=== PATIENT | male | born 1985 | race Caucasian/White ===

== ENCOUNTER 2018-03-23 10:16 | Emergency (ER) | payer BC ==
[~2018-03-23] VITALS: Ht 182.9 cm; Wt 82.6 kg
[2018-03-23] MEDS ORDERED: CENTRUM SILVER1 EAC2 PO (10:25)
[2018-03-23] MEDS ORDERED: ADDERALL 20 MG20 MG PO (10:25)
[2018-03-23 10:37] LABS: ABSOLUTE BASOPHILS 0.1 thou/uL (0.0-0.2); ABSOLUTE EOSINOPHILS 0.2 thou/uL (0.0-0.7); ABSOLUTE LYMPHOCYTES 1.8 thou/uL (0.8-5.3); ABSOLUTE MONOCYTES 0.8 thou/uL (0.0-1.2); ABSOLUTE NEUTROPHILS 4.5 thou/uL (1.6-8.1); BASOPHILS 0.8 %; EOSINOPHILS 2.1 %; HEMATOCRIT 44.8 % (42.0-52.0); HEMOGLOBIN 15.1 gm/dL (14.0-18.0); MCH 29.3 pg (26.0-34.0); MCHC 33.7 g/dL (28.0-37.0); MCV 86.9 fL (80.0-100.0); MONOCYTES 11.5 %; MPV 9.4 fl. (7.2-11.1); NUCLEATED RBCS 0 /100WBC; PLATELET COUNT* 224 thou/uL (150-400); POLYS 61.6 %; RBC 5.16 mil/uL (4.50-6.00); RDW-CV 12.5 % (10.5-14.5); WBC 7.3 thou/uL (4.0-11.0)
[2018-03-23 10:58] LABS: CALCIUM 9.6 mg/dL (8.5-10.1); CREATININE 1.2 mg/dL (0.6-1.3); POTASSIUM 4.5 mmol/L (3.5-5.1)
[2018-03-23 11:03] LABS: TOTAL BILIRUBIN 1.1 mg/dL (<0.1-1.0); TOTAL PROTEIN 7.2 g/dL (6.4-8.2)
[2018-03-23 11:26] LABS: URINE BILIRUBIN NEGATIVE (Negative); URINE BLOOD NEGATIVE (Negative); URINE CLARITY CLEAR; URINE COLOR YELLOW; URINE GLUCOSE-RANDOM NEGATIVE (Negative); URINE KETONES NEGATIVE (Negative); URINE LEUKOCYTES-REFLEX NEGATIVE (Negative); URINE NITRITE-REFLEX NEGATIVE (Negative); URINE PROTEIN NEGATIVE (Negative); URINE UROBILINOGEN 0.2 E.U./dl (0.2-1.0)
[2018-03-23 11:33] LABS: AMP/METHAMP Negative (Negative); BARBITURATES Negative (Negative); BENZODIAZEPINES Negative (Negative); COCAINE Negative (Negative); METHADONE Negative (Negative); OPIATES Negative (Negative); PCP Negative (Negative); THC Negative (Negative)
[2018-03-23 12:41] VITALS: BP 107/72
[2018-03-23] MEDS ORDERED: BENTYL 20 MG TA20 M1 PO (12:41)
--- NOTE | 2018-03-24 10:07 | EKG ---
[place] [address] ELECTROCARDIOGRAM REPORT Name: SHELLEY RAMIREZ Room: [facility]#: [id number] Admission: 03/23/18 Attend Phys: Discharge: 03/23/18 Date of : 81 Report #: [id number] THIS REPORT FOR: //name// [facility] ED Test Date: 2018-03-23 Test Time: 10:35:14 Pat Name: SHELLEY RAMIREZ Department: Room: Gender: M [employer] Booking Clerk: [facility] : 1985 Requested By: Austen Bryant Order Number: [id number] MD: Clifford Velásquez Measurements Intervals [place] Rate: 58 P: 53 MI: 210 QRS: 54 QRSD: 110 T: 37 QT: 406 QTc: 399 Interpretive Statements Sinus rhythm Prolonged MI interval Anteroseptal infarct, age indeterminate No previous ECG available for comparison Electronically Signed On 03-24-2018 10:07:25 PCTS by Clifford Velásquez [email or web address] <ELECTRONICALLY SIGNED> By: Clifford Velásquez MD, [facility] 03/24/18 1007 1035 1035 Clifford Velásquez MD, FACC /EPI
== END 2018-03-23 12:51 | disposition home or self-care (01) ==
LOC: M.ERS 10:16
PROVIDERS: Nurse Practitioner Family
DX: K59.9 Functional intestinal disorder, unspecified (principal); F90.9 Attention-deficit hyperactivity disorder, unspecified type

== ENCOUNTER 2019-01-22 13:45 | Emergency (ER) | payer OTHER ==
[~2019-01-22] VITALS: Ht 182.9 cm; Wt 82.6 kg
[~2019-01-22 13:45] MED LIST: ADDERALL 20 MG20 MG PO; BENTYL 20 MG TA20 M1 PO; CENTRUM SILVER1 EAC2 PO
[2019-01-22 13:50] VITALS: BP 116/77
[2019-01-22] MEDS ORDERED: AMOXICILLIN 50500 MG PO (14:14)
[2019-01-22 14:24] LABS: INFLUENZA A ANTIGEN Negative (Negative); INFLUENZA B ANTIGEN Negative (Negative)
== END 2019-01-22 14:21 | disposition home or self-care (01) ==
LOC: M.ERS 13:45
PROVIDERS: Family Medicine
DX: J02.0 Streptococcal pharyngitis (principal); F90.9 Attention-deficit hyperactivity disorder, unspecified type